=== PATIENT | male | born 1970 | race African-American/Black ===

== ENCOUNTER 2017-03-23 17:24 | Emergency (ER) | payer OTHER ==
[~2017-03-23] VITALS: Ht 188 cm; Wt 72.7 kg
[2017-03-23 17:27] VITALS: BP 111/81
[2017-03-23] MEDS ORDERED: KEFLEX500 MG PO (19:40)
== END 2017-03-23 19:58 | disposition home or self-care (01) ==
LOC: EME 17:24 → RME 17:24
PROC: 0HCMXZZ Extirpation of Matter from Right Foot Skin, External Approach (ICD-10-PCS; principal; 2017-03-23)
DX: S91.342A Puncture wound with foreign body, left foot, initial encounter (principal); W27.3XXA Contact with needle (sewing), initial encounter; F17.200 Nicotine dependence, unspecified, uncomplicated; Z85.118 Personal history of other malignant neoplasm of bronchus and lung
CPT/HCPCS: 73610; 99281; 99284